=== PATIENT | male | born 1935 | race Caucasian/White ===

== ENCOUNTER 2018-08-14 13:51 | Inpatient (IN) | payer OTHER ==
[~2018-08-14] VITALS: Ht 172.7 cm; Wt 39.0 kg
[2018-08-14 15:30] LABS: BASOPHIL % 0.5 % (0-2); PLATELET COUNT 257 x10^3mcL (130-400)
[2018-08-14 15:36] LABS: RED CELL DISTRIBUTION WIDTH 19.8 % (11.5-14.5)
[2018-08-14 15:42] LABS: CALCIUM 8.7 mg/dL (8.5-10.1); CARBON DIOXIDE 27.3 mmol/L (21-32); CHLORIDE SERUM 103 mmol/L (98-107); CREATININE SERUM 1.3 mg/dL (0.7-1.3); GLUCOSE SERUM 110 mg/dL (74-106); POTASSIUM SERUM 4.3 mmol/L (3.5-5.1); SODIUM SERUM 141 mmol/L (136-145)
--- NOTE | 2018-08-14 15:42 | NUR ---
PT TO ED FOR CATHERTER REMOVAL. PT AND DAUGHTER STATE HE HAS HAD THE ALFARO IN FOR APPROX 3 WEEKS. HX OF BPH FOR APPROX 10 YEARS. PT HAS RECENTLY MOVED THE IE 2 DAYS AGO FROM [place]. 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 HE HAD BEEN RECEIVING RADIATION FOR THE PAST 6 WEEKS . LAST RADIATION 4 DAYS AGO . HE ALSO TAKES IV CHEMO LAST CHEMO 10 DAYS AGO. ALL TREATMENTS HAVE BEEN IN [place]. PT HAS HAS HAD A DECREASED APPETITE WITH NAUSEA AFTER STARTING CHEMO. PER DAUGHTER PT HAS HAD RAPID WEIGHT LOSS. PT APPEARS CACHECTIC. PT AWAKE, ALERT AND ORIENTED X 4. BREATHING EVEN UNLABORED. ALFARO CATH REMOVED AND DISCARDED. TIP OF ALFARO APPEARS CRUSTED WITH WHITE AND YELLOW MATERIAL. PT PLACED ON CM. IV STARTED. EKG AND BLOOD WORK COMPLETED. DAUGHTER AT BEDSIDE. CONTINUE TO MONITOR.
[2018-08-14 15:46] LABS: ALKALINE PHOSPHATASE 65 U/L (46-116); ALT/SGPT 14 U/L (16-63); AST/SGOT 15 U/L (15-37); BILIRUBIN TOTAL 0.72 mg/dL (0.20-1.00); CHOLESTEROL 178 mg/dL (<200); HDL CHOLESTEROL 49 mg/dL (40-60); MAGNESIUM 1.3 mg/dL (1.8-2.4); TOTAL PROTEIN, SERUM 7.1 g/dL (6.4-8.2)
[2018-08-14 15:47] LABS: ALBUMIN 3.1 g/dL (3.4-5.0)
[2018-08-14] MEDS ORDERED: [UNRECOGNIZED DRUG - OTHER] PO (15:55)
[2018-08-14] MEDS ORDERED: FLO4 PO (15:56)
[2018-08-14] MEDS ORDERED: APAP500 MG PO (15:57)
[2018-08-14] MEDS ORDERED: PROS5 PO (15:57)
[2018-08-14] MEDS ORDERED: CIPRO500 MG PO (15:58)
[2018-08-14] MEDS ORDERED: NORCO1 TA2 PO (15:59)
[2018-08-14] MEDS ORDERED: CARVEDILOL12.5 M1 PO (15:59)
[2018-08-14] MEDS ORDERED: LOSARTAN POTASS25 M1 PO (15:59)
[2018-08-14] MEDS ORDERED: SAL5 PO (16:01)
[2018-08-14] MEDS ORDERED: ONDANSETRON4 M3 PO (16:01)
--- NOTE | 2018-08-14 16:19 | NUR ---
PT IN POSITION OF COMFORT. DAUGHT AT BEDSIDE. VSS. WILL CONTINUE TO MONITOR.
--- NOTE | 2018-08-14 17:06 | NUR ---
PT REQUESTED DINORA. DR. RAMÍREZ APPROVED DINORA.
[2018-08-14 17:18] LABS: microscopic required? YES
[2018-08-14 17:19] LABS: urine erythrocyte 3+ (NEGATIVE)
[2018-08-14 17:31] LABS: CHOLESTEROL/HDL RATIO 3.8
[2018-08-14 17:32] LABS: AMPHETAMINE QUAL UR NONE DETECTED (See below)
[2018-08-14 17:39] LABS: T3 TOTAL 0.74 ng/mL
[2018-08-14 17:41] LABS: FREE T4 1.02 ng/dL (0.76-1.46); FREE THYROXINE INDEX 2.5 ug/dL (1.4-4.5); T4(THYROXINE) 6.5 ug/dL (4.7-13.3)
--- NOTE | 2018-08-14 17:51 | NUR ---
REPORT GIVEN TO MEREDITH.
--- NOTE | 2018-08-14 18:01 | NUR ---
RECEVED PT FROM ER. PT ADMIT FOR NON STEMI, DEHYDRATION. PT IS A/O X4, VERBAL RESPONSIVE, ABLE TO TELL WHAT HE NEEDS. LUNG SOUND CLEAR BILATERAL ,NO COUGH, NO SOB, PT IS ON TELE 39, NSR WITH PAC, DENY ANY CHEST PAIN AT THIS MOMENT. BOWEL SOUND PRESENT ALL 4 QUADRANTS, NO DISTENTION, NO TENDER. PEDAL PULSE PRESENT BOTH FEET, NO EDEMA, IV AT RIGHT AC, NO LEAKING, NO INFILTRATION. DISCOLORATION AT NECK. ALL ADLS ASSIST, ALL NEED MET, CALL LIGHT IN REACH, WILL CONTINUE TO MONTIOR.
[2018-08-14 18:26] VITALS: BP 137/61
--- NOTE | 2018-08-14 18:51 | NUR ---
AT 1800 - RECEIVED PATIENT FROM ER NURSE. SETTLED IN BED, PLACED ON CARDIAC MONITORING AND ORIENTED TO SURROUNDINGS. ADMITTED WITH NSTEMI, DEHYDRATION. PATIENT IS AWAKE, ALERT AND ORIENTED. HISTORY AND ASSESMENT BEING DONE BY ADMITTING NURSE. PATIENT'S DAUGHTER IS AT BEDSIDE. IV INFUSING NS AT 150ML/HR FOR CURRENT LITER. THEN TO CHANGE TO 70 ML/HR. 2 GRAM MAGNESIUM RIDER COMMENCED. TO INFUSE OVER 2 HR. ALSO GIVEN MG OXIDE 400 MG PO. TO COMMENCE ON CLEAR LIQUID DIET. WILL ENDORSE CARE TO NIGHT NURSE.
--- NOTE | 2018-08-14 20:27 | NUR ---
SHIFT REASSESSMENT DONE.PATIENT ALERT AND ORIENTED.VERY WEAK,DAUGHTER WAS HERE MAG[place],SUPPORTIVE OF CARE.TELE 39 SR.REMOVED SOME HAIR FROM CHEST,SHAVED,TELE WAS NOT READING WELL.ALFARO WAS REMOVED IN ER,VOIDING.NECK DISCOLORATION NOTED ON ADMIT.CALL LIGHT IN REACH.
--- NOTE | 2018-08-14 21:00 | NUR ---
WANTED OXYGEN,PUT AT 2 LITERS N/C.
--- NOTE | 2018-08-14 21:00 | NUR ---
PM MEDSS GIVEN WITH APPLESAUCE,GOT A HARD TIME SWALLOWING.
[2018-08-14 21:21] VITALS: BP 126/59
--- NOTE | 2018-08-14 21:46 | NUR ---
REMINDED TO USE URINAL AT BEDSIDE/WITHIN REACH.
--- NOTE | 2018-08-15 01:15 | NUR ---
LATEST TROP 0.136,MARTHA ON ADMIT 0.122.WILL NOTIFY DR TORRES.MONIQUE ALSO AWARE.
--- NOTE | 2018-08-15 01:19 | NUR ---
LATEST TROP 0.136.ON ADMIT 0.122.DR TORRES MADE AWARE.MONIQUE CHARGE NURSE ALSO AWARE.NO MED ORDER AT THIS TIME.
--- NOTE | 2018-08-15 01:28 | NUR ---
PATIENT CHECKED AT THIS TIME.ASLEEP,NO RESP DISTRESS,NO CHEST PAIN.
--- NOTE | 2018-08-15 02:00 | NUR ---
NEW IV BAG AT THIS TIME,PATIENT WILL BE GIVEN TO SORAYA AT 3 AM.MONIQUE ASSIGNED TO HIM.PATIENT VERY PLEASNT AND GRATEFUL WITH ALL THE CARE HE GETS FROM NURSES.
--- NOTE | 2018-08-15 03:19 | NUR ---
REPORT GIVEN TO SORAYA,ASSUMED CARE BY HIM.
--- NOTE | 2018-08-15 03:20 | NUR ---
PT IN LOW FOWLERS, SLEEPING, EASILY AROUSABLE, NO S/S OF DISTRESS PRESENTED. PT ON 2LPM NASAL CANULA WITH EFFORTLESS BREATHING. BED IN LOWEST POSITION, CALL LIGHT WITHIN REACH.
[2018-08-15 05:43] VITALS: BP 115/60
--- NOTE | 2018-08-15 06:47 | NUR ---
DR. MEYERS IN (AT BEDSIDE) TO EVALUATE PT. PT AWAKE, ALERT, ORIENTED RESPONSIVE TO COMMANDS. IV PATENT AND INFUSING WELL TO RAC. BED IN LOWEST POSITION, CALL LIGHT WITHIN REACH.
[2018-08-15 07:40] LABS: BASOPHIL % 0.4 % (0-2); PLATELET COUNT 186 x10^3mcL (130-400); RED CELL DISTRIBUTION WIDTH 19.8 % (11.5-14.5)
[2018-08-15 07:44] LABS: CARBON DIOXIDE 26.8 mmol/L (21-32); CHLORIDE SERUM 106 mmol/L (98-107); GLUCOSE SERUM 77 mg/dL (74-106); LIPASE 267 IU/L (73-393); MAGNESIUM 2.3 mg/dL (1.8-2.4); POTASSIUM SERUM 5.3 mmol/L (3.5-5.1); SODIUM SERUM 137 mmol/L (136-145)
[2018-08-15 07:57] LABS: CALCIUM 7.6 mg/dL (8.5-10.1)
[2018-08-15 09:29] VITALS: BP 115/73
--- NOTE | 2018-08-15 09:55 | NUR ---
PASSED MORNING MEDICATIONS. PT TOLERATED WELL (CRUSHED). DENIES ANY DISCOMFORT AT MOMENT. PROVIDED QUIET ENVIRONMENT, BED IN LOWEST POSITION, WHEELS LOCKED, CALL LIGHT WITHIN REACH. WILL CONTINUE TO MONITOR.
[2018-08-15 12:57] VITALS: BP 118/70
--- NOTE | 2018-08-15 16:35 | NUR ---
PROVIDED COMFORTABLE, QUIET ENVIRONMENT. DENIES PAIN. EFFORTLESS BREATHING ON ROOM AIR. CALL LIGHT WITHIN REACH. DAUGHTER AT BEDSIDE.
[2018-08-15 17:36] VITALS: BP 126/64
--- NOTE | 2018-08-15 19:05 | NUR ---
PROVIDED HYGIENE CARE. PROVIDED COMFORTABLE ENVIRONMENT, PROMOTED REST. PT IN LOW FOWLERS, DENIES ANY PAIN. IV PATENT AND INFUSING WELL TO RAC #20. BED IN LOWEST POSITION, CALL LIGHT WITHIN REACH. DAUGHTER AT BEDSIDE.
--- NOTE | 2018-08-15 19:52 | NUR ---
SHIFT REASSESSMENT DONE.PATIENT ALERT AND ORIENTED,QUIET.WANTED HIS ROOM DOOR CLOSE ALREADY,HAS A EYEPATCH,JUST WANTED IT QUIET.PATIENT HAS NO RESP DISTRESS BUT WANTED O2 AND INTACT.URINAL AT BEDSIDE.HAD BM AFTER LACTULOSE GIVEN PER SORAYA.K+ WAS ELEVATED.PATIENT VERY PEASANT.SON IN LAW WAS HERE VISITING,LEI [phone].CALL LIGHT IN REACH.
[2018-08-15 21:17] VITALS: BP 127/57
--- NOTE | 2018-08-15 21:30 | NUR ---
PM MEDS GIVEN WIHOUT ANY INCIDENT,SLOW TO SWALLOW WITH APPLESAUCE.PATIENT WANT TE LIGHT OFF,CLOSE DOOR,QUIET ENVIRONMENT MAINTAINED.CALL LIGHT IN REACH.
[2018-08-15 21:57] VITALS: Ht 172.7 cm; Wt 39.0 kg
--- NOTE | 2018-08-16 01:16 | NUR ---
CHECKED AT THIS TIME.NO COMPLAINT.
[2018-08-16 05:03] VITALS: BP 105/75
--- NOTE | 2018-08-16 05:59 | NUR ---
PATIENT SLEEPING WELL DURING THE NIGHT.I AND O MEASURED.URINAL AT BEDSSIDE.IV SITE RAC INTACT AND SECURED.WILL ENDORSE TO NEXT SHIFT.
--- NOTE | 2018-08-16 07:20 | NUR ---
RECEIVED PT FROM NIGHT NURSE. PT IS ALSEEP IN BED. RESPIRATIONS EVEN AND UNLABORED. PT LOOKS TO BE IN NO ACUTE DISTRESS AT THIS TIME. IV FLUIDS INFUSING AND IV SITE LOOKS PATENT WITH NO SIGNS OF REDNESS OR SWELLING. BED IN LOWEST POSITION. WILL CONTINUE TO MONTIOR.
[2018-08-16 10:01] VITALS: BP 122/53
--- NOTE | 2018-08-16 11:28 | NUR ---
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 admitted for indwelling catheter removal d/t generalized discomfort. Pt. currently receiving chemotherapy and radiation (last treatment 1 week ago) and c/o urinary retention; lugo removed and is undergoing bladder training. No c/o GI distress at this time. Pt. endorses excellent appetite at this time, which has improved greatly since his last chemotherapy/radiation treatment x 1 week ago. No reports no N/V/C, noted with loose stools this morning. States that he has lost about 10# since his last chemotherapy treatment d/t throat discomfort and GI distress. Pt. reports he was only able to tolerate egg yolks and bland foods for a week. Requesting for food preferences; will update computrition to best provide FP to patient to encourage PO intake. T: Appears underweight/malnourished, unintentional weight loss -10# x1 mo, poor PO intake >3days C: Cachectic/malnutrition Problem with: No c/o N/V/D/C Problems with: Chewing: N Swallowing: N Current appetite: Improved, excellent at this time Recent wt change: None %wt change: N/A Vitamin/Supplement use: None Special diet at home: Regular, high calorie diet Physical activity: None d/t chronic medical condition Education: Diet education provided on the importance of increasing calorie intake to encourage weight gain and prevention of further weight loss. Provided examples of foods pt. can incorporate to increase calorie and protein intake. NCM handout on high calorie/protein diet provided. Estimated Nutritional Needs Based on actual body weight 39 kg: Energy: 5301-4745 kcal/d (40-45 kcal/kg-weight gain needs, severely underweight, CA) Protein: 78-95 g/d (2.0-2.5 g/kg)- weight gain, CA, preservation of lean body mass Fluid: 2080-8539 ml/d (1 ml/kcal-fluid balance) or per doctor Nutrition Diagnosis 1. Increased nutrient needs r/t severely underweight status, recently hx weight loss 2/2 chemo and radiation treatments AEB pt. reports of -10# weight loss x 1 mo and measured BMI 13.1. 2. Severe malnutrition r/t NFPE findings and severely underweight status AEB indentation of the bilateral temporals, protrusion of the buccal regions, severe muscle and fat losses on the bilateral brachial resiong, and measured BMI 13.1. Intervention/RD recommendations 1. MVI w/minerals QD or equivalent. 2. Ensure Enlive 5x daily with meals and in between meals for severe malnutrition, weight loss, and increased nutrient needs. 3. Continue FLD and advance to regular as tolerated. Monitor/Evaluate Goal: PO intake at least 75% of estimated needs Monitor: PO intake, Labs, GI function, diet tolerance F/U in 2-3 days as high risk (08/18-08/19)
--- NOTE | 2018-08-16 11:30 | NUR ---
PT LAYING DOWN IN BED WITH HOB UP WATCHING TV. FAMILY MEMBER AT BEDSIDE TALKING WITH PT. PT LOOKS TO BE IN NO ACUTE DISTRESS AT THIS TIME. IV FLUIDS INFUSING, IV SITE LOOKS PATENT WTIH NO SIGNS OF REDNESS OR SWELLING. CALL LIGHT WITHIN REACH. WILL CONITNUE TO MONITOR.
[2018-08-16 13:00] VITALS: BP 122/53
[2018-08-16 14:27] VITALS: BP 119/51
[2018-08-16 16:16] VITALS: BP 147/77
--- NOTE | 2018-08-16 18:17 | NUR ---
PT AWAKE, ALERT AND ORIENTED AT THE TIME OF DISCHARGE. PT LOOKS TO BE IN NO ACUTE DISTRESS AT THE TIME OF DISCHARGE AND DENIES ANY PAIN. PT DC HOME AND WALKED TO LOBBY ACCOMPANIED BY FAMILY MEMBER. PT PROVIDED WITH DC EDUCATION WELL PRESCRIPION EDUCATION. PT VERBALIZED UNDERSTANDING OF THE EDUCATION. PT INFORMED OF THE INFORMATION OF THE INFORMATION FOR THE HOME HEALTH AGENCY THAT WILL BE CARING FOR THE PT AND PT INFORMED ME THAT THE HOME HEALTH AGENCY HAS ALREADY CONTACTED HIM. IV REMOVED AND CATHETER FULLY INTACT. TELE MONITOR REMOVED AND TELE INFORMED OF PT DC. BELONGINGS WITH FAMILY AND PT.
== END 2018-08-16 18:18 | disposition home health service (06) | DRG 725 ==
LOC: ED 13:51 → DU 16:57
PROVIDERS: Emergency Medicine; Family Medicine; ADMIT Internal Medicine
DX: N40.1 Benign prostatic hyperplasia with lower urinary tract symptoms (principal); N17.0 Acute kidney failure with tubular necrosis; I21.A1 Myocardial infarction type 2; E44.0 Moderate protein-calorie malnutrition; Z68.1 Body mass index [BMI] 19.9 or less, adult; I50.22 Chronic systolic (congestive) heart failure; I11.0 Hypertensive heart disease with heart failure; R33.8 Other retention of urine; E86.0 Dehydration; E87.5 Hyperkalemia; K12.33 Oral mucositis (ulcerative) due to radiation; C43.4 Malignant melanoma of scalp and neck; E83.42 Hypomagnesemia; E78.5 Hyperlipidemia, unspecified; Z86.73 Personal history of transient ischemic attack (TIA), and cerebral infarction without residual deficits
CPT/HCPCS: 83880; 84439; 97112-GP; 97116-GP; J3475; J7030; Q0092

== ENCOUNTER 2018-09-02 09:31 | Inpatient (IN) | payer OTHER | END 2018-09-06 16:00 | disposition home or self-care (01) | LOC: ED 09:31 → DU 13:40 → ED 09:31 → DU 13:40 → ED 09:31 → DU 13:40 → ED 09:31 → DU 13:40 → ED 09:31 → DU 13:40 | PROC: 0D758ZZ Dilation of Esophagus, Via Natural or Artificial Opening Endoscopic (ICD-10-PCS; principal; 2018-09-04 09:30) | DX: C76.0 Malignant neoplasm of head, face and neck (principal); I24.9 Acute ischemic heart disease, unspecified; N39.0 Urinary tract infection, site not specified; Z68.1 Body mass index [BMI] 19.9 or less, adult; E44.0 Moderate protein-calorie malnutrition; I25.10 Atherosclerotic heart disease of native coronary artery without angina pectoris; R13.10 Dysphagia, unspecified; E86.0 Dehydration; D50.0 Iron deficiency anemia secondary to blood loss (chronic); N40.0 Benign prostatic hyperplasia without lower urinary tract symptoms; Z92.3 Personal history of irradiation; Z92.21 Personal history of antineoplastic chemotherapy; E87.5 Hyperkalemia ==

== ENCOUNTER 2018-11-16 01:27 | Emergency (ER) | payer OTHER ==
[~2018-11-16] VITALS: Ht 170.2 cm; Wt 46.0 kg
[~2018-11-16 01:27] MED LIST: APAP500 MG PO; CARVEDILOL12.5 M1 PO; CIPRO500 MG PO; FERROUS SULFAT325 M2 PO; FINASTERIDE5 M1 PO; FLO4 PO; LOSARTAN POTASS25 M1 PO; MEGL PO; NORCO1 TA2 PO; NYSTATIN100000 U/M PO; ONDANSETRON4 M3 PO; PROS5 PO; SAL5 PO; [UNRECOGNIZED DRUG - OTHER] PO
[2018-11-16 01:48] VITALS: Ht 170.2 cm; Wt 46.0 kg
[2018-11-16 02:51] LABS: CALCIUM 9.3 mg/dL (8.5-10.1); CARBON DIOXIDE 22.1 mmol/L (21-32); CHLORIDE SERUM 105 mmol/L (98-107); CREATININE SERUM 1.1 mg/dL (0.7-1.3); GLUCOSE SERUM 115 mg/dL (74-106); POTASSIUM SERUM 4.1 mmol/L (3.5-5.1); SODIUM SERUM 137 mmol/L (136-145)
[2018-11-16 02:52] LABS: C REACTIVE PROTEIN 6.8 mg/dL (<=0.9)
[2018-11-16 02:59] LABS: BASOPHIL % 0.3 % (0-2); PLATELET COUNT 247 x10^3mcL (130-400); RED CELL DISTRIBUTION WIDTH 11.8 % (11.5-14.5)
[2018-11-16 04:24] LABS: ERYTHROCYTE SED RATE 52 mm/hr (0-20)
[2018-11-16 05:10] VITALS: BP 142/79
== END 2018-11-16 05:31 | disposition home or self-care (01) ==
LOC: ED 01:27
PROVIDERS: Emergency Medicine
DX: L03.113 Cellulitis of right upper limb (principal); M06.4 Inflammatory polyarthropathy; I10 Essential (primary) hypertension
CPT/HCPCS: J1885; J2001; J7030; Q0092

== ENCOUNTER → 2019-01-18 | Outpatient (CLI) | payer OTHER ==
[2019-01-18 09:21] LABS: BASOPHIL % 0.7 % (0-2); RED CELL DISTRIBUTION WIDTH 14.3 % (11.5-14.5)
[2019-01-18 09:27] LABS: PLATELET COUNT 408 x10^3mcL (130-400)
[2019-01-18 10:16] LABS: ALBUMIN 3.6 g/dL (3.4-5.0); ALKALINE PHOSPHATASE 87 U/L (46-116); ALT/SGPT 21 U/L (16-63); AST/SGOT 22 U/L (15-37); BILIRUBIN TOTAL 0.5 mg/dL (0.20-1.00); CALCIUM 9.8 mg/dL (8.5-10.1); CARBON DIOXIDE 24.6 mmol/L (21-32); CHLORIDE SERUM 102 mmol/L (98-107); CREATININE SERUM 1.2 mg/dL (0.7-1.3); GLUCOSE SERUM 91 mg/dL (74-106); POTASSIUM SERUM 4.7 mmol/L (3.5-5.1); SODIUM SERUM 138 mmol/L (136-145); TOTAL PROTEIN, SERUM 7.8 g/dL (6.4-8.2)
== END | disposition home or self-care (01) ==
LOC: LB 08:48
PROVIDERS: Internal Medicine Medical Oncology
DX: C02.9 Malignant neoplasm of tongue, unspecified (principal)